=== PATIENT | male | born 1945 | race Two or more races ===

== ENCOUNTER 2022-05-23 02:10 | Emergency (ER) | payer OTHER ==
[2022-05-23] MEDS ORDERED: methylPREDNISolone NA SUCC 125 MG/2 ML VIAL IVPB ONE (02:19)
[2022-05-23 02:20] VITALS: BP 140/81; TEMP 98.5; BMI 25.2
[2022-05-23] MEDS ORDERED: methylPREDNISolone NA SUCC 125 MG/2 ML VIAL ONE (02:24)
[2022-05-23] MEDS ORDERED: FAMOTIDINE 20 MG/50 ML IVPB 20 MG/50 ML MG IVPB ONE ×2 (03:30→03:34)
[2022-05-23 04:32] VITALS: PULSE 71
== END 2022-05-23 04:37 | disposition home or self-care (01) ==
LOC: FER 02:10
PROC: 3E033NZ Introduction of Analgesics, Hypnotics, Sedatives into Peripheral Vein, Percutaneous Approach (ICD-10-PCS; principal; 2022-05-23)
PROC: 3E033GC Introduction of Other Therapeutic Substance into Peripheral Vein, Percutaneous Approach (ICD-10-PCS; 2022-05-23)
PROC: 3E033GC Introduction of Other Therapeutic Substance into Peripheral Vein, Percutaneous Approach (ICD-10-PCS; 2022-05-23)
DX: T78.40XA Allergy, unspecified, initial encounter (principal)
CPT/HCPCS: 99283-25